=== PATIENT | male | born 1950 | race Caucasian/White ===

== ENCOUNTER 2016-11-14 13:53 | Emergency (ER) | payer OTHER | END 2016-11-14 15:55 | disposition other institution (70) | LOC: ED 13:53 | DX: Z02.89 Encounter for other administrative examinations (principal) ==

== ENCOUNTER 2016-11-14 13:53 | Emergency (ER) | payer SELFPAY ==
[~2016-11-14] VITALS: Ht 162.6 cm; Wt 72.6 kg
[2016-11-14 16:00] VITALS: BP 127/92
== END 2016-11-14 15:55 | disposition other institution (70) ==
LOC: ED 13:53
DX: S01.83XA Puncture wound without foreign body of other part of head, initial encounter (principal); Y35.811A Legal intervention involving manhandling, law enforcement official injured, initial encounter; Y93.89 Activity, other specified; Y92.89 Other specified places as the place of occurrence of the external cause; Y99.8 Other external cause status